=== PATIENT | male | born 1980 | race Hispanic/Latino ===

== ENCOUNTER 2018-07-04 13:41 | Emergency (ER) | payer SELFPAY ==
[2018-07-04] MEDS ORDERED: CLEOCIN300 MG PO (15:35)
[2018-07-04 16:27] VITALS: BP 132/88
== END 2018-07-04 16:39 | disposition home or self-care (01) | DRG 603 ==
LOC: ED 13:41
PROC: 0H9NXZZ Drainage of Left Foot Skin, External Approach (ICD-10-PCS; principal; 2018-07-04)
DX: L02.612 Cutaneous abscess of left foot (principal); L03.116 Cellulitis of left lower limb; B95.62 Methicillin resistant Staphylococcus aureus infection as the cause of diseases classified elsewhere

== ENCOUNTER 2019-10-26 21:17 | Emergency (ER) | payer SELFPAY ==
[~2019-10-26] VITALS: Ht 175.3 cm; Wt 52.0 kg
[~2019-10-26 21:17] MED LIST: CLEOCIN300 MG PO
[2019-10-26 21:55] LABS: URINE BILIRUBIN - DIPSTICK NEGATIVE (NEGATIVE); URINE BLOOD DIPSTICK SMALL (NEGATIVE); URINE COLOR YELLOW; URINE GLUCOSE - DIPSTICK NEGATIVE (NEGATIVE); URINE KETONE TRACE mg/dL (NEGATIVE); URINE NITRITE - DIPSTICK NEGATIVE (Negative); URINE PH 5.5 (4.5-8.0); URINE PROTEIN - DIPSTICK 30 mg/dL (NEG-TRACE); URINE SPECIFIC GRAVITY >=1.030
[2019-10-26 21:56] LABS: URINE LEUK ESTERASE MODERATE (NEGATIVE)
[2019-10-26 22:03] LABS: URINE WBC >100 WBC/hpf (0-5)
[2019-10-26 22:07] LABS: HEMATOCRIT 40.3 % (39.0-50.0); HEMOGLOBIN 12.4 g/dl (14.0-18.0); IMMATURE GRANULOCYTES 0.6 % (0.0-5.0); MEAN CELL VOLUME 84.8 fL CALC (80.0-100.0); MEAN CORPUSCULAR HGB 26.1 pG CALC (26.0-32.0); MEAN CORPUSCULAR HGB CONC 30.8 g/dL CAL (32.0-36.0); NEUT# 10.9 thou/uL (1.82-7.42); RED BLOOD COUNT 4.75 mill/uL (4.70-6.10)
[2019-10-26 22:22] LABS: ALBUMIN 4.1 g/dL (3.2-5.0); ALKALINE PHOSPHATASE 77 u/l (38-126); AMYLASE 67 u/l (30-110); ANION GAP 15 (6-22 (CALC)); BILIRUBIN, TOTAL 0.4 mg/dL (0.0-1.4); BUN 17 mg/dL (9-20); BUN/CREATININE RATIO 15 (12-20 (CALC)); CARBON DIOXIDE 28 mmol/l (22-30); CHLORIDE 100 mmol/l (95-108); CREATININE 1.1 mg/dL (0.7-1.3); GFR > 60 ML/MIN (>=60 (CALC)); GFR FOR AFR.AMER. > 60 ML/MIN (>=60 (CALC)); LIPASE 74 u/l (23-300); POTASSIUM 4.5 mmol/l (3.5-5.1); SGOT/AST 27 u/l (17-59); SODIUM 138 mmol/l (137-146); TOTAL PROTEIN 8.6 g/dL (6.3-8.2)
[2019-10-27] MEDS ORDERED: CIPROFLOXACN750 MG PO (00:09)
[2019-10-27 00:35] VITALS: BP 105/69
== END 2019-10-27 00:35 | disposition left against medical advice (07) | DRG 690 ==
LOC: ED 21:17
PROVIDERS: Emergency Medicine
DX: N39.0 Urinary tract infection, site not specified (principal); F17.210 Nicotine dependence, cigarettes, uncomplicated; Z91.19 Patient's noncompliance with other medical treatment and regimen
CPT/HCPCS: Q9967

== ENCOUNTER 2020-05-12 01:18 | Inpatient (IN) | payer SELFPAY ==
[~2020-05-12] VITALS: Ht 175.3 cm; Wt 68.1 kg
[~2020-05-12 01:18] MED LIST changes: +CIPROFLOXACN750 MG PO
--- NOTE | 2020-05-12 01:20 | NUR ---
AMBULATORY FROM OUTSIDE BENCH TO ROOM 3 FOR TRIAGE. (COVID PROTOCAL)
--- NOTE | 2020-05-12 01:36 | NUR ---
PT MOVED TO EX 6 FOR MONITORING.
[2020-05-12 02:10] LABS: HEMATOCRIT 39.4 % (39.0-50.0); HEMOGLOBIN 12.6 g/dl (14.0-18.0); IMMATURE GRANULOCYTES 0.5 % (0.0-5.0); MEAN CELL VOLUME 81.6 fL CALC (80.0-100.0); MEAN CORPUSCULAR HGB 26.1 pG CALC (26.0-32.0); RED BLOOD COUNT 4.83 mill/uL (4.70-6.10)
--- NOTE | 2020-05-12 02:15 | NUR ---
IV X2/IVF/ANTIBIOTICS/ANTIPYRETIC/SWABS/EKG/CXR ALL COMPLETED. ONE IV HAD TO BE RESTARTED. PT ADMITS TO IVDU. MONITORS APPLIED. LIGHTS DIMMED. S.O. AT BEDSIDE.
[2020-05-12 02:32] LABS: ALBUMIN 4.1 g/dL (3.2-5.0); ALKALINE PHOSPHATASE 93 u/l (38-126); BUN 12 mg/dL (9-20); BUN/CREATININE RATIO 11 (12-20 (CALC)); CARBON DIOXIDE 26 mmol/l (22-30); CHLORIDE 94 mmol/l (95-108); CREATININE 1.1 mg/dL (0.7-1.3); GFR > 60 ML/MIN (>=60 (CALC)); GFR FOR AFR.AMER. > 60 ML/MIN (>=60 (CALC)); POTASSIUM 4.1 mmol/l (3.5-5.1); SGOT/AST 30 u/l (17-59); TOTAL PROTEIN 8.9 g/dL (6.3-8.2)
[2020-05-12 02:37] LABS: ANION GAP 13 (6-22 (CALC)); BILIRUBIN, TOTAL 0.9 mg/dL (0.0-1.4); SODIUM 129 mmol/l (137-146)
--- NOTE | 2020-05-12 04:04 | NUR ---
report for report to MARGIE Forde/Med surg
--- NOTE | 2020-05-12 04:12 | NUR ---
PT VOIDED 800 CC OF DARK TIFFANIE URINE. SPEC TO LAB.
--- NOTE | 2020-05-12 04:12 | NUR ---
pt medicated with asa as ordered and urine specimen collected.
[2020-05-12 04:20] VITALS: BP 98/65
--- NOTE | 2020-05-12 04:22 | NUR ---
ADELFOLEBEAR REMOVED BY RADIOLGY WENT HOME WITH GIRLFRIEND.
--- NOTE | 2020-05-12 04:22 | NUR ---
PT TRANSPORTED TO MED SURG VIA WHEELCHAIR, ALL BELONGINGS SENT WITH PT.
--- NOTE | 2020-05-12 04:37 | NUR ---
PT RECEIVED FROM ED TO ROOM 272. ARRIVES VIA WC ACCOMPANIED BY SULAIMAN HANSON. PT AMBULATORY TO BED. GAIT STEADY. PT DENIES PAIN AT THIS TIME. ORIENTED TO UNIT, ROOM, CALL AC, LIGHTS, TV. ICE WATER PROVIDED. CALL AC WITHIN REACH. AGREES TO CALL PRN.
[2020-05-12 06:01] LABS: URINE BILIRUBIN - DIPSTICK NEGATIVE (NEGATIVE); URINE BLOOD DIPSTICK NEGATIVE (NEGATIVE); URINE COLOR YELLOW; URINE GLUCOSE - DIPSTICK NEGATIVE (NEGATIVE); URINE KETONE NEGATIVE (NEGATIVE); URINE PH 6.5 (4.5-8.0); URINE PROTEIN - DIPSTICK NEGATIVE (NEG-TRACE); URINE SPECIFIC GRAVITY 1.015
[2020-05-12 06:02] LABS: URINE LEUK ESTERASE NEGATIVE (NEGATIVE); URINE NITRITE - DIPSTICK POSITIVE (Negative)
[2020-05-12 06:06] LABS: URINE BACTERIA MODERATE hpf; URINE EPITHELIAL CELLS FEW EPI/hpf (0-FEW)
[2020-05-12 07:55] VITALS: BP 110/75
--- NOTE | 2020-05-12 10:18 | NUR ---
PT SEEN AT REST IN THE BED, NO DISTRESS NOTED. LUNGS CLEAR, RA. LAB AT BEDSIDE FOR BLOOD DRAW. NO CHEST PAIN OR SHORTNESS OF BREATH REPORTED.
[2020-05-12 11:16] VITALS: BP 142/85
[2020-05-12 12:17] LABS: BUN 12 mg/dL (9-20); BUN/CREATININE RATIO 12 (12-20 (CALC)); CARBON DIOXIDE 24 mmol/l (22-30); GFR > 60 ML/MIN (>=60 (CALC)); GFR FOR AFR.AMER. > 60 ML/MIN (>=60 (CALC)); POTASSIUM 4.6 mmol/l (3.5-5.1); SODIUM 132 mmol/l (137-146)
[2020-05-12 12:19] LABS: ANION GAP 11 (6-22 (CALC)); CHLORIDE 102 mmol/l (95-108)
--- NOTE | 2020-05-12 14:35 | NUR ---
DR BURCIAGA HAD MENTIONED POSSIBLE DISCHARGE TODAY, BUT CTA SHOWED PNEUMONIA AND NEED FOR FURTHER ABX. PT AWARE, CONTINUES TO SLEEP IN THE BED IN NO ACUTE DISTRESS.
[2020-05-12 15:05] VITALS: BP 119/67
[2020-05-12 17:02] LABS: HEMATOCRIT 34.6 % (39.0-50.0); HEMOGLOBIN 10.9 g/dl (14.0-18.0); IMMATURE GRANULOCYTES 0.7 % (0.0-5.0); MEAN CELL VOLUME 83.2 fL CALC (80.0-100.0); MEAN CORPUSCULAR HGB 26.2 pG CALC (26.0-32.0); MEAN CORPUSCULAR HGB CONC 31.5 g/dL CAL (32.0-36.0); NEUT# 12.56 thou/uL (1.82-7.42); RED BLOOD COUNT 4.16 mill/uL (4.70-6.10); RED CELL DISTRI WIDTH 13.2 % (11.5-15.5)
--- NOTE | 2020-05-12 18:24 | NUR ---
PT WITH VISITOR AT BEDSIDE, NO DISTRESS NOTED, NO COMPLAINTS OFFERED.
--- NOTE | 2020-05-12 18:38 | NUR ---
PT'S SISTER CALLED, LEAVES [phone] CONTACT NUMBER. SHE STATES THAT PT IS HOMELESS AND THAT SHE IS THE ONLY RELATIVE THAT HE HAS. SHE STATES THAT HE DOES NOT LIVE AT THIS ADDRESS HE PROVIDED.
[2020-05-12 19:50] VITALS: BP 129/76
--- NOTE | 2020-05-12 20:00 | NUR ---
PHYSICAL ASSESMENT COMPLETE. PT CURRENTLY DENIES PAIN OR DISCOMFORT. SCHEDULED MEDICATIONS AND PRN MEDICATION ADMINISTERED, SEE E-MAR. PT DENIES ANY NEEDS AT THIS TIME. PLAN OF CARE REVIEWED, PT DENIES QUESTIONS, VERBALIZES UNDERSTANDING. ITEMS WITHIN REACH, BED LOCKED IN LOW POSITION W/ BEDRAILS UP X2. CALL AC WITHIN REACH, AGREES TO CALL PRN.
[2020-05-12 22:30] VITALS: BP 129/70
--- NOTE | 2020-05-12 22:46 | NUR ---
PT STATES HE CAN'T BREATHE. VITALS TAKEN. 02 100 % NO LABORED BREATHING. PT STATES HE IS ADDICTED TO PILLS AND NEEDS TO GO HOME AND TAKE PILLS. ASKED WHAT KIND OF PILLS, PT STATES HE DOES NOT KNOW. DR BURCIAGA CONTACTED. STATES IF PT WANTS TO GO HOME AMA LET HIM BUT IF HE DOES IT IS QUITE LIKELY HE WILL . tHIS MESSAGE WAS CONVEYED TO THE PT. PY HAS RECONSIDERED HIS DESIRE TO GO HOME AND WILL STAY ADMITTED FOR TREATMENT.
[2020-05-13] VITALS: BP 121/80
--- NOTE | 2020-05-13 00:02 | NUR ---
PT LAYING IN BED WITH EYES CLOSED, APPEARS TO BE SLEEPING, APPEARS COMFORTABLE AND IN NO DISTRESS. RESPIRATIONS REGULAR AND UNLABORED. 0000 ANTIBIOTICS ADMINISTERED. ITEMS REMAIN WITHIN REACH, CALL AC REMAINS WITHIN REACH. BED REMAINS LOCKED AND IN LOW POSITION WITH BEDRAILS UP X2. WILL CONTINUE TO MONITOR.
[2020-05-13 04:00] VITALS: BP 116/70
--- NOTE | 2020-05-13 04:06 | NUR ---
PT RESTING IN BED, NO SIGNS OF DISTRESS NOTED, RESP EVEN AND UNLABORED. PT VOICES NO NEEDS OR COMPLAINTS AT THIS TIME. CALL LIGHT IN REACH, CONTINUE TO MONITOR.
[2020-05-13 05:41] LABS: HEMATOCRIT 33.3 % (39.0-50.0); HEMOGLOBIN 10.7 g/dl (14.0-18.0); MEAN CORPUSCULAR HGB 26.7 pG CALC (26.0-32.0); MEAN CORPUSCULAR HGB CONC 32.1 g/dL CAL (32.0-36.0); RED BLOOD COUNT 4.01 mill/uL (4.70-6.10); RED CELL DISTRI WIDTH 13.2 % (11.5-15.5)
[2020-05-13 05:57] LABS: ANION GAP 20 (6-22 (CALC)); BUN 8 mg/dL (9-20); BUN/CREATININE RATIO 10 (12-20 (CALC)); CARBON DIOXIDE 20 mmol/l (22-30); CHLORIDE 95 mmol/l (95-108); CREATININE 0.8 mg/dL (0.7-1.3); GFR > 60 ML/MIN (>=60 (CALC)); GFR FOR AFR.AMER. > 60 ML/MIN (>=60 (CALC)); MAGNESIUM 1.9 mg/dL (1.6-2.3); POTASSIUM 4.3 mmol/l (3.5-5.1); SODIUM 130 mmol/l (137-146)
[2020-05-13 07:20] VITALS: BP 105/68
--- NOTE | 2020-05-13 07:55 | NUR ---
ASSESSMENT IS COMPLETED: IV SITE IS FREE FROM REDNESS OR EDEMA. HR IS REG,PULSES ARE STRONG X4, ABD IS SOFT WITH ACTIVE BS. BREATH SOUNDS ARE CLEAR,BILATERALLY, TELE MONITOR IN PLACE. NO C/O PAIN VOICED.
--- NOTE | 2020-05-13 08:49 | NUR ---
BLOOD CULTURE RESULTS CALLED TO [facility], NO NEW ORDERS. GRAM (+) COCCI X 4 VIALS. PATIENT IS ON VANCO.
[2020-05-13 10:25] VITALS: BP 112/65
--- NOTE | 2020-05-13 12:00 | NUR ---
PT IS RESTING IN BED WITH NO DISTRESS NOTED. IV SITE IS FREE FROMREDNESS OR EDEMA.
--- NOTE | 2020-05-13 13:04 | NUR ---
S: REMEDIOS LION is a 39 M who presents with fever. He has a history of fever, leucocytosis, chest pain. All medications in patient's chart were reviewed. O: VS: BP 112/65 mmHg, P 93 beats per minute, RR 24 breathes per minute, T 97.1 F W 68.095 kg, HT 69 in, Scr= 0.8 mg/dL, CrCl= 118.2 ml/min A: Blood cultures preliminary results show no growth. Urine culture preliminary results show growth of Staphylococcus aureus, sensitivities not available with preliminary results. P: Patient is on azithromycin 500 mg IV Q24H, Zosyn 3.375 g IV Q6H. Vancomycin ordered for pharmacy to dose. Start Vancomycin 1000 mg IV Q12H. Vancomycin trough is drawn before the 4th dose on 05/14/20 @ 0005. Vancomycin goal trough is between 10-15 mcg/ml. Pharmacy will follow and or advise on antibiotics use as needed.
--- NOTE | 2020-05-13 15:04 | NUR ---
INFORMED PT OF THE VISITOR RULE. "ONLY 1 VISITOR A DAY FOR 1 HR INBEWTWEEN 1-6PM" HIS SISTER CAME AND SAW HIM. THE IS DOWNSTAIRS AND INSISITING ON COMING UP. EXPLAINED TO THE PT "MY BOSS SAID NO ONLY 1 VISITOR. WOULS LIKE TO SPEAK WITH MY BOSS. WOULD LIKE ONLY HIS TO BE ABLE TO COME AND SEE HIM.
[2020-05-13 15:27] VITALS: BP 105/67
--- NOTE | 2020-05-13 16:00 | NUR ---
PT IS RELAXING IN BED WITH NO DISTRESS NOTED IV SITE IS FREE FROM REDNESS OR EDEMA.
[2020-05-13 19:00] VITALS: BP 116/68
--- NOTE | 2020-05-13 20:00 | NUR ---
PT ASSESSMENT COMPLETED AND PT MEDICATED ORDERS PROVIDE. MEDICATED PT FOR ANXIOUSNESS. PT REPORTS FEELING ANXIOUS AND HAVING PAIN "EVERYWHERE." NO EDEMA NOTED, SKIN APPEARS TO BE INTACT. LUNG SOUNDS ARE CLEAR, NO NOTED EDEMA. CALL LIGHT IS AT SIDE AND PT ENCOURAGED TO CALL NEEDS ARISE.
--- NOTE | 2020-05-13 23:09 | NUR ---
CLEAN URINAL PROVIDED TO PT FOR CLEAN URINE CATCH FOR LABS. CHART CHECK REVEALED NEED FOR URINE COLLECTION/LABS. INSTRUCTED PT THAT WE NEEDED TO BE SURE AND COLLECT URINE THE NEXT TIME HE IS ABLE TO URINATE, VERBALIZED UNDERSTANDING.
--- NOTE | 2020-05-13 23:50 | NUR ---
PT MEDICATED FOR PAIN AND IV ANTIBIOTIC THERAPY ADMINISTERED AT THIS TIME. PT REPORTS THAT THE ATIVAN ADMINISTERED EARLIER REALLY HELPED HIM FEEL BETTER. DENIES ANY OTHER NEEDS AT THIS TIME.
[2020-05-14] VITALS: BP 120/80
--- NOTE | 2020-05-14 00:14 | NUR ---
LAB IS IN WITH PT AT THIS TIME TO OBTAIN VANCO TROUGH DRAW.
--- NOTE | 2020-05-14 01:00 | NUR ---
Antibiotic therapy administered at this time. Pt was sleeping, slightly awaoke to my voice, but returned to sleep. No s/o distress noted.
--- NOTE | 2020-05-14 02:48 | NUR ---
PT IS SLEEPING, AWOKE TO MY ENTERING THE ROOM, DENIES ANY NEEDS. CALL LIGHT AT SIDE.
[2020-05-14 04:00] VITALS: BP 124/80
--- NOTE | 2020-05-14 05:21 | NUR ---
PT MEDICATED W/IV ANTIBIOTIC THERAPY AND IVF REPLENISHED AT THIS TIME. PT IS SLEEPING, NO S/O DISTRESS NOTED.
[2020-05-14 05:35] LABS: HEMATOCRIT 33.1 % (39.0-50.0); HEMOGLOBIN 10.6 g/dl (14.0-18.0); MEAN CELL VOLUME 82.5 fL CALC (80.0-100.0); MEAN CORPUSCULAR HGB 26.4 pG CALC (26.0-32.0); RED BLOOD COUNT 4.01 mill/uL (4.70-6.10); RED CELL DISTRI WIDTH 13.4 % (11.5-15.5)
[2020-05-14 05:51] LABS: ANION GAP 13 (6-22 (CALC)); BUN 8 mg/dL (9-20); BUN/CREATININE RATIO 9 (12-20 (CALC)); CARBON DIOXIDE 20 mmol/l (22-30); CHLORIDE 103 mmol/l (95-108); CREATININE 0.9 mg/dL (0.7-1.3); GFR > 60 ML/MIN (>=60 (CALC)); GFR FOR AFR.AMER. > 60 ML/MIN (>=60 (CALC)); POTASSIUM 4.2 mmol/l (3.5-5.1); SODIUM 133 mmol/l (137-146)
--- NOTE | 2020-05-14 06:30 | NUR ---
BITA STARR APRN NOTIFIED OF FINAL BLOOD AND URINE CULTURE RESULTS SHOWING MRSA. NO NEW ORDERS AT THIS TIME.
[2020-05-14 07:25] VITALS: BP 126/80
--- NOTE | 2020-05-14 07:39 | NUR ---
PT LAYING IN BED. A&O X3. NO DISTRESS NOTED. PT DENIES ANY PAIN AT THIS TIME. CLEAR BREATH SOUNDS UPON AUSCULTATION. ACTIVE BOWEL SOUNDS X4 QUADS. DEPILATORY PAINTER IN PLACE. #20 NANI INFUSING IVF PER MAR ORDERS, HEALTHY AND PATENT. ASSESSMENT COMPLETED. DISCUSSED POC. CALL LIGHT WITHIN REACH.
--- NOTE | 2020-05-14 09:45 | NUR ---
DR MOE AND Ct ROSALES APRN AT BEDSIDE DISCUSSING POC
[2020-05-14 10:54] VITALS: BP 113/68
--- NOTE | 2020-05-14 11:49 | NUR ---
PT SITTING IN BED. EATING LUNCH. PT C/O OF GENERALIZED PAIN, 11/17. MORPHINE GIVEN, WILL REASSESS. NO OTHER NEEDS AT THIS TIME. CALL LIGHT LEFT WITHIN REACH.
--- NOTE | 2020-05-14 12:45 | NUR ---
US TECH AT BEDSIDE GETTING ECHO
--- NOTE | 2020-05-14 14:33 | NUR ---
ECHO RESULTS GIVEN/SHOWN TO Ct ROSALES APRN
--- NOTE | 2020-05-14 14:36 | NUR ---
S: REMEDIOS LION is a 39 M who presents with FEVER. He has a history oF MRSA SEPSIS. All medications in patient's chart were reviewed. O: A: Blood culture show MRSA Urine culture MRSA P: Patient is on VACNO 1 GRAM Q12H . TROUGH IS <5 Vancomycin ordered for pharmacy to dose. Start Vancomycin 1 GRAM IV Q8H. Vancomycin trough is drawn before the 4th dose on 05/720 . Vancomycin goal trough is between <15-20 mcg/ml>. Pharmacy will follow and or advise on antibiotics use as needed. VAL LUNA PHARMD
--- NOTE | 2020-05-14 14:50 | NUR ---
PT SLEEPING IN BED. NO DISTRESS NOTED. CALL LIGHT WITHIN REACH.
[2020-05-14 14:55] VITALS: BP 124/77
--- NOTE | 2020-05-14 17:10 | NUR ---
PTS SIO NOTIFIED THAT VISITING HOUR WAS OVER. PTS SIO WAS WALKING TO THE ELEVATOR, PT REQUESTING TO SEE THIS RECEIVING TANK OPERATOR. UPON ENTERING ROOM, PT FRUSTRATED WANTING TO LEAVE. PT FRUSTRATED WITH VISITING HOUR POLICY, AND THE FACT THAT THE SISTER "HAS BEEN TALKING BAD ABOUT MY GIRLFRIEND". PT ENOCOURAGED TO STAY EXPLAINED SEVERITY OF ILLNESS IN [place] SO PATIENT HAD A BETTER UNDERSTANDING OF CURRENT ILLNESS AND POC. PT STILL AGITATED AND HESISTANT ON LEAVING.
--- NOTE | 2020-05-14 18:16 | NUR ---
Patient still decides to leave AMA. Multiple attempts made to ecourage patient to remain here for continued treatment by this commercial insurance underwriter, Agusto Nursing air traffic control supervisor, Radha huynh RN. Pt initially agreed to stay if SIO could visit the remainder of the 10 mins of the visiting hour. SIO no longer here, explained to pt that she was not able to come up. Pt agitated and states the deal is off and is no longer going to stay. Explained to patient all risks of leaving against medical advice including , especially with his positive blood cultures, pt still wanting to leave. Pt verbalized understanding of all risks. Pt also encouraged to return to [facility] at any time, especially if symptoms continue or become worse. Pt verbalized understanding. Pt walked out by Venkatesh Pena CNA. AMA form signed by this commercial insurance underwriter witnessed by Radha Huynh RN.
[2020-05-14] MEDS ORDERED: DOXYCYCL HYC100 MG PO (21:40)
== END 2020-05-14 18:20 | disposition left against medical advice (07) | DRG 871 ==
LOC: ED 01:18 → ED-I 03:09 → ED 03:50 → MS2 03:51
PROVIDERS: Emergency Medicine; Nurse Practitioner; ADMIT Internal Medicine; ATTEND Internal Medicine
DX: A41.02 Sepsis due to Methicillin resistant Staphylococcus aureus (principal); J18.9 Pneumonia, unspecified organism; I26.90 Septic pulmonary embolism without acute cor pulmonale; N30.90 Cystitis, unspecified without hematuria; I95.9 Hypotension, unspecified; F15.10 Other stimulant abuse, uncomplicated; Z20.822 Contact with and (suspected) exposure to COVID-19
CPT/HCPCS: J1650; J2060; Q9967

== ENCOUNTER 2020-06-02 | Emergency (ER) | payer SELFPAY ==
[~2020-06-02] MED LIST changes: +DOXYCYCL HYC100 MG PO
[2020-06-02 14:23] LABS: HEMATOCRIT 32.1 % (39.0-50.0); HEMOGLOBIN 10.1 g/dl (14.0-18.0); IMMATURE GRANULOCYTES 3.8 % (0.0-5.0); MEAN CELL VOLUME 81.3 fL CALC (80.0-100.0); MEAN CORPUSCULAR HGB 25.6 pG CALC (26.0-32.0); MEAN CORPUSCULAR HGB CONC 31.5 g/dL CAL (32.0-36.0); NEUT# 19.88 thou/uL (1.82-7.42); RED BLOOD COUNT 3.95 mill/uL (4.70-6.10); RED CELL DISTRI WIDTH 14.3 % (11.5-15.5)
[2020-06-02 14:34] LABS: ALKALINE PHOSPHATASE 102 u/l (38-126); ANION GAP 14 (6-22 (CALC)); BILIRUBIN, TOTAL 0.6 mg/dL (0.0-1.4); BUN 22 mg/dL (9-20); BUN/CREATININE RATIO 23 (12-20 (CALC)); CARBON DIOXIDE 23 mmol/l (22-30); CHLORIDE 96 mmol/l (95-108); CREATININE 0.9 mg/dL (0.7-1.3); GFR > 60 ML/MIN (>=60 (CALC)); GFR FOR AFR.AMER. > 60 ML/MIN (>=60 (CALC)); POTASSIUM 4.8 mmol/l (3.5-5.1); SGOT/AST 49 u/l (17-59); SODIUM 128 mmol/l (137-146); TOTAL PROTEIN 8.5 g/dL (6.3-8.2)
[2020-06-02 14:37] LABS: ALBUMIN 3.2 g/dL (3.2-5.0)
--- NOTE | 2020-06-03 07:51 | NUR ---
BLOOD CULTURE REPORT WAS FAXED OVER TO SANDY AT [facility] @ [phone].
--- NOTE | 2020-06-04 13:42 | NUR ---
Patient's microbiological blood culture reports from 06/02/20 were faxed over to [facility] @ .
== END 2020-06-02 17:04 | disposition short-term general hospital (02) | DRG 872 ==
PROVIDERS: Emergency Medicine
DX: A41.9 Sepsis, unspecified organism (principal); F19.10 Other psychoactive substance abuse, uncomplicated; F17.200 Nicotine dependence, unspecified, uncomplicated; Z20.822 Contact with and (suspected) exposure to COVID-19

== ENCOUNTER 2020-11-28 11:44 | Observation (INO) | payer MEDICAID ==
[~2020-11-28] VITALS: Ht 175.3 cm; Wt 66.0 kg
--- NOTE | 2020-11-28 11:44 | NUR ---
PT TO ROOM 12 VIA WC ABLE TO STAND AND TRANSFER SELF WITH MIN ASST.
[2020-11-28 12:57] LABS: HEMATOCRIT 35.1 % (39.0-50.0); HEMOGLOBIN 10.2 g/dl (14.0-18.0); IMMATURE GRANULOCYTES 0.4 % (0.0-5.0); MEAN CORPUSCULAR HGB 23.8 pG CALC (26.0-32.0); MEAN CORPUSCULAR HGB CONC 29.1 g/dL CAL (32.0-36.0); NEUT# 3.7 thou/uL (1.82-7.42); RED BLOOD COUNT 4.28 mill/uL (4.70-6.10)
[2020-11-28 14:54] LABS: ALKALINE PHOSPHATASE 81 u/l (38-126); AMYLASE 157 u/l (30-110); BUN 14 mg/dL (9-20); BUN/CREATININE RATIO 18 (12-20 (CALC)); C-REACTIVE PROTEIN 1.1 mg/dL (0-0.9); CARBON DIOXIDE 27 mmol/l (22-30); CHLORIDE 107 mmol/l (95-108); CREATININE 0.8 mg/dL (0.7-1.3); ETHYL ALCOHOL 0 mg/dl (0-30); GFR > 60 ML/MIN (>=60 (CALC)); GFR FOR AFR.AMER. > 60 ML/MIN (>=60 (CALC)); LIPASE 149 u/l (23-300); POTASSIUM 4.2 mmol/l (3.5-5.1); SGOT/AST 34 u/l (17-59); TOTAL PROTEIN 9.3 g/dL (6.3-8.2)
[2020-11-28 14:55] LABS: ANION GAP 12 (6-22 (CALC)); BILIRUBIN, TOTAL 0.3 mg/dL (0.0-1.4); SODIUM 142 mmol/l (137-146)
[2020-11-28 14:57] LABS: ACT PARTIAL THROMBO TIME 27.9 SECONDS (20.0-32.5); PROTHROMBIN TIME 10.6 SECONDS (9.0-12.5)
--- NOTE | 2020-11-28 15:46 | NUR ---
Reassessment of patient completed. No distress noted.
--- NOTE | 2020-11-28 15:47 | NUR ---
PATIENT AWAITING CTA
--- NOTE | 2020-11-28 18:51 | NUR ---
REPORT GIVEN TO MEDICAL/SURGICAL NURSE
--- NOTE | 2020-11-28 18:55 | NUR ---
TRANSITION OF CARE REPORT GIVEN TO PETAR HANSON
[2020-11-28 19:30] VITALS: BP 152/111
--- NOTE | 2020-11-28 19:30 | NUR ---
PT ARRIVED TO MS2 VIA STRETCHER ACCOMPANIED BY NURSING GROOVER AND STRIPER OPERATOR. PT ALERT AND ORIENTED X3, SPEAKS [place] AND [place]. COMPUTER REPAIRER SPEAKS [place] WELL, OREINTED PT TO ROOM AND CALL LIGHT DISCUSSED POC, SMOKING, AND ISOLATION PRECAUTIONS, PT VERBALIZED UNDERSTANDING. SKIN INTACT, ADMISSION ASSESSMENT COMPLETED, CALL LIGHT IN REACH,CONTINUE TO MONITOR.
--- NOTE | 2020-11-28 19:30 | NUR ---
PT TRANSPORTED TO MED SURG ON TELE VIA STRETCHER, BELONGINGS SENT WITH PATIENT. REPORT CALLED TO MED SURG NURSE BY PREVIOUS SHIFT.
[2020-11-28 19:57] LABS: URINE BILIRUBIN - DIPSTICK NEGATIVE (NEGATIVE); URINE BLOOD DIPSTICK TRACE-INTACT (NEGATIVE); URINE COLOR YELLOW; URINE GLUCOSE - DIPSTICK NEGATIVE (NEGATIVE); URINE KETONE NEGATIVE (NEGATIVE); URINE LEUK ESTERASE NEGATIVE (NEGATIVE); URINE PROTEIN - DIPSTICK NEGATIVE (NEG-TRACE); URINE UROBILINOGEN - DIPSTICK 0.2 E.U./dL (0.2)
[2020-11-28 19:59] LABS: URINE NITRITE - DIPSTICK NEGATIVE (Negative)
--- NOTE | 2020-11-28 20:45 | NUR ---
PT RESTING IN BED, DISCUSSED MEDS, PT AGREES. VOICES NO NEEDS OR COMPLAITS AT THIS TIME, CALL LIGHT IN REACH,CONTINUE MONITOR.
[2020-11-29] VITALS: BP 147/102
--- NOTE | 2020-11-29 01:22 | NUR ---
PT BP ELEVATED 147/102 HR 103, PT ASYMPTOMATIC, REQUESTING ICE CREAM. STATES HE HAS BEEN TOLD BEFORE THAT HE HAS HIGH BP BUT NEVER SAW A DR TO SEEK TREATMENT. PT GIVEN ICE CREAM, RECRUITING MANAGER GOLD BUYER NOTIFIED, NO NEW ORDERS AT THIS TIME. PT VOICES NO NEEDS OR COMPLAINTS AT THIS TIME. CALL LIGHT IN REACH, CONTINUE TO MONITOR.
[2020-11-29 04:00] VITALS: BP 139/101
[2020-11-29 05:09] LABS: HEMATOCRIT 31.7 % (39.0-50.0); HEMOGLOBIN 9.2 g/dl (14.0-18.0); MEAN CELL VOLUME 82.3 fL CALC (80.0-100.0); MEAN CORPUSCULAR HGB 23.9 pG CALC (26.0-32.0); RED BLOOD COUNT 3.85 mill/uL (4.70-6.10)
[2020-11-29 05:23] LABS: ANION GAP 15 (6-22 (CALC)); BUN 13 mg/dL (9-20); BUN/CREATININE RATIO 17 (12-20 (CALC)); CALCULATED LDLCHOLESTEROL 57 mg/dL (62-129 (CALC)); CARBON DIOXIDE 23 mmol/l (22-30); CHLORIDE 108 mmol/l (95-108); CHOLESTEROL HDL RATIO 3.8 (<4.4 (CALC)); CREATININE 0.8 mg/dL (0.7-1.3); GFR > 60 ML/MIN (>=60 (CALC)); GFR FOR AFR.AMER. > 60 ML/MIN (>=60 (CALC)); HDL CHOLESTEROL 29 mg/dL (>=40); MAGNESIUM 1.6 mg/dL (1.6-2.3); POTASSIUM 4.2 mmol/l (3.5-5.1); SODIUM 142 mmol/l (137-146); TOTAL CHOLESTEROL 110 mg/dl (0-199); TOTAL TRIGLYCERIDES 121 mg/dl (30-149); VLDL CHOLESTROL 24 mg/dl (5-56 (CALC))
--- NOTE | 2020-11-29 09:42 | NUR ---
S: REMEDIOS LION is a 40 M who presents with pneumonia. He has a history of IV drug use/abuse and +TOB MRSA. All medications in patient's chart were reviewed. O: VS: BP 139/101 mmHg, P 108 bpm, RR 21 breaths/min, T 99.8 degF W 66 kg, HT 69 in, Scr= 0.8 mg/dL,CrCl= 113.4 ml/min A: Blood culture is pending. P: Patient is on Zosyn 4.5g IV Q6H. Vancomycin ordered for pharmacy to dose. Start Vancomycin 1000mg IV Q12H. Vancomycin trough is drawn before the 4th dose on 11/30/20 at 0600. Vancomycin goal trough is between 15-20 mcg/ml. Pharmacy will follow and or advise on antibiotics use as needed.
--- NOTE | 2020-11-29 09:45 | NUR ---
DR MOE AND Ct ROSALES APRN AT BEDSIDE DISCUSSING POC
[2020-11-29 10:19] VITALS: BP 151/91
[2020-11-29 11:17] VITALS: BP 156/92
[2020-11-29 11:17] LABS: C-REACTIVE PROTEIN 2.3 mg/dL (0-0.9)
[2020-11-29] MEDS ORDERED: LOPRESSOR25 MG PO (11:44)
[2020-11-29] MEDS ORDERED: FLEXERIL5 M1 PO (11:46)
[2020-11-29] MEDS ORDERED: MOTRIN800 MG PO (11:47)
--- NOTE | 2020-11-29 14:43 | NUR ---
NANI DOUBLE LUMEN PICC REMOVED DUE TO D/C. LUMEN INTACT. OCCLUSIVE DRESSING APPLIED, BIOPATCH APPLIED. PT INSTRUCTED TO KEEP DRESSING ON FOR 24 HRS. #24G TO RAC REMOVED. NO OTHER NEEDS AT THIS TIME.
--- NOTE | 2020-11-29 15:03 | NUR ---
[employer]I [employer]OL[employer] APPROVAL OBTAINED BY Doyle MARSH RN.
--- NOTE | 2020-11-29 15:22 | NUR ---
Discharge instructions given. Patient verbalizes understanding of same. Discharged in stable condition via wheelchair to home with staff. All belongings sent with pt.
== END 2020-11-29 15:23 | disposition home or self-care (01) ==
LOC: ED 11:44 → ED-I 14:52 → ED 17:23 → MS2 17:24
PROVIDERS: Nurse Practitioner; ADMIT Internal Medicine; ATTEND Internal Medicine
DX: A41.89 Other specified sepsis (principal); U07.1 COVID-19; J12.82 Pneumonia due to coronavirus disease 2019; E86.0 Dehydration; I10 Essential (primary) hypertension; F13.10 Sedative, hypnotic or anxiolytic abuse, uncomplicated; F19.10 Other psychoactive substance abuse, uncomplicated; M54.6 Pain in thoracic spine; M54.50 Low back pain, unspecified; M54.2 Cervicalgia; G89.29 Other chronic pain; F17.210 Nicotine dependence, cigarettes, uncomplicated; Z23 Encounter for immunization
CPT/HCPCS: G0378; J0131; J1650; Q9967

== ENCOUNTER 2021-02-12 14:14 | Emergency (ER) | payer OTHER ==
[~2021-02-12] VITALS: Ht 175.3 cm; Wt 68.1 kg
[~2021-02-12 14:14] MED LIST changes: +FLEXERIL5 M1 PO; +LOPRESSOR25 MG PO; +MOTRIN800 MG PO
[2021-02-12 18:30] LABS: IMMATURE GRANULOCYTES 0.1 % (0.0-5.0); MEAN CELL VOLUME 81.8 fL CALC (80.0-100.0); MEAN CORPUSCULAR HGB 24.7 pG CALC (26.0-32.0); MEAN CORPUSCULAR HGB CONC 30.1 g/dL CAL (32.0-36.0); NEUT# 2.58 thou/uL (1.82-7.42); RED BLOOD COUNT 5.76 mill/uL (4.70-6.10); RED CELL DISTRI WIDTH 14.6 % (11.5-15.5)
[2021-02-12 18:32] LABS: HEMATOCRIT 47.1 % (39.0-50.0); HEMOGLOBIN 14.2 g/dl (14.0-18.0)
[2021-02-12 18:52] LABS: ALBUMIN 4.5 g/dL (3.2-5.0); ALKALINE PHOSPHATASE 115 u/l (38-126); ANION GAP 16 (6-22 (CALC)); BUN 22 mg/dL (9-20); BUN/CREATININE RATIO 23 (12-20 (CALC)); CARBON DIOXIDE 25 mmol/l (22-30); CHLORIDE 104 mmol/l (95-108); ETHYL ALCOHOL 0 mg/dl (0-30); GFR > 60 ML/MIN (>=60 (CALC)); GFR FOR AFR.AMER. > 60 ML/MIN (>=60 (CALC)); POTASSIUM 4.6 mmol/l (3.5-5.1); SGOT/AST 56 u/l (17-59); SODIUM 140 mmol/l (137-146); TOTAL PROTEIN 10.8 g/dL (6.3-8.2)
[2021-02-12 18:53] LABS: BILIRUBIN, TOTAL 0.6 mg/dL (0.0-1.4)
[2021-02-12 20:19] LABS: URINE BILIRUBIN - DIPSTICK NEGATIVE (NEGATIVE); URINE BLOOD DIPSTICK NEGATIVE (NEGATIVE); URINE COLOR YELLOW; URINE GLUCOSE - DIPSTICK NEGATIVE (NEGATIVE); URINE KETONE NEGATIVE (NEGATIVE); URINE LEUK ESTERASE NEGATIVE (NEGATIVE); URINE PROTEIN - DIPSTICK NEGATIVE (NEG-TRACE); URINE SPECIFIC GRAVITY >=1.030; URINE UROBILINOGEN - DIPSTICK 0.2 E.U./dL (0.2)
[2021-02-12 20:20] LABS: URINE NITRITE - DIPSTICK NEGATIVE (Negative)
[2021-02-12 23:55] VITALS: BP 134/89
== END 2021-02-12 23:55 | disposition short-term general hospital (02) ==
LOC: ED 14:14
PROVIDERS: Family Medicine
DX: M46.22 Osteomyelitis of vertebra, cervical region (principal); F17.210 Nicotine dependence, cigarettes, uncomplicated; Z59.00 Homelessness unspecified; Z20.822 Contact with and (suspected) exposure to COVID-19